=== PATIENT | male | born 1980 | race Caucasian/White ===

== ENCOUNTER 2018-12-06 23:49 | Emergency (ER) | payer OTHER ==
[~2018-12-06] VITALS: Ht 182.9 cm; Wt 84.7 kg
[~2018-12-06 23:49] MED LIST: CARI350T29 PO; CEPH-443 PO; CLOT30CR24 TOP; IBUP-1542 PO; IBUP800T48 PO; SULF1TAB31 PO; TRAM50TA2 PO
[2018-12-06 23:50] VITALS: Ht 182.9 cm; Wt 84.7 kg
[2018-12-07 01:47] VITALS: BP 140/82; PULSE 94; RESP 18
== END 2018-12-07 01:47 | disposition home or self-care (01) ==
LOC: FTE 23:49
DX: L02.414 Cutaneous abscess of left upper limb (principal); B35.3 Tinea pedis; H11.002 Unspecified pterygium of left eye; L02.413 Cutaneous abscess of right upper limb; Z87.891 Personal history of nicotine dependence
CPT/HCPCS: 99283